=== PATIENT | male | born 1935 | race Hispanic/Latino ===

== ENCOUNTER 2017-12-03 09:40 | Outpatient (CLI) | payer MEDICARE, OTHER ==
--- NOTE | 2017-12-03 11:00 | Ultrasound Report ---
Limited abdominal ultrasound: Prostate cancer and elevated bilirubin. Images of the liver demonstrate a generally normal size and echo pattern. There is no focal finding. The gallbladder is echogenically unremarkable and the CBD diameter is 3 mm. The body and head of the pancreas are visualized and appear somewhat echogenic but the tail is obscured. The right renal length is 11.5 cm. In the superior pole there is an echolucent mass measuring 3.6 cm consistent with a cyst. The kidney is not otherwise remarkable. The transverse diameter of the proximal abdominal aorta is 1.7 cm. Impressions: Probable fatty changes of the pancreas. Superior pole right renal cyst.
== END 2017-12-03 09:41 | disposition home or self-care (01) ==
LOC: SPVWC 09:40
PROVIDERS: ATTEND Internal Medicine Hematology
DX: R97.21 Rising PSA following treatment for malignant neoplasm of prostate (principal); N28.1 Cyst of kidney, acquired
CPT/HCPCS: 76705

== ENCOUNTER 2018-03-18 08:34 | Outpatient (CLI) | payer MEDICARE, OTHER ==
[2018-03-18 09:43] LABS: Blood Urea Nitrogen 16 mg/dL (9-20)
--- NOTE | 2018-03-18 14:25 | Cat Scan Report ---
CT HEAD WITH AND WITHOUT CONTRAST: HISTORY: Left temporal bone mass. Serial contiguous axial images were obtained through the cranium, both before and after the administration of intravenous contrast material. The ventricles are normal in size and appearance. There is no mass effect or midline shift. No areas of abnormally increased or decreased attenuation are seen. No mass lesion is seen. Mild diffuse cortical atrophy and mild chronic white matter changes are identified which appear appropriate for this persons age. The mastoid air cells and visualized portions of the sinuses are normal. IMPRESSION: Senescent changes. No acute process. No left temporal bone mass is detected on CT.
--- NOTE | 2018-03-19 07:34 | Cat Scan Report ---
CT CHEST WITH CONTRAST: HISTORY: PSA, prostate cancer. COMPARISON: PET CT dated 06/15/16. TECHNIQUE: Helical CT in 1.25mm intervals following IV contrast. Sagittal and coronal reformatted images. FINDINGS: Thyroid gland: The thyroid gland appears atrophic which is unchanged. There is a calcified masslike lesion just posterior and inferior to the left thyroid lobe measuring 2.8 x 1.9 cm in axial plane which is also unchanged. It is unclear if this represents an exophytic thyroid lesion, calcified lymph nodes or other lesion. I suspect a benign etiology. Tracheobronchial tree: Normal. Esophagus: Normal. Heart: Normal size heart. Mild aortic valve calcifications are noted. Pericardium: Normal. Mediastinum: No mediastinal mass or inflammation. The aorta is normal caliber and contains mild scattered calcific plaques. Lung Chavez: No evidence for pulmonary nodule, mass or infiltrate. 1.6 cm right middle lobe parenchymal lung cyst is noted. There is evidence for mild air trapping in both lungs which could be related to mild COPD. Pleural Spaces: Normal. Musculoskeletal: The bony structures are intact. Mild multilevel thoracic spondylosis is noted. No suspicious bony lesions are identified. IMPRESSION: No evidence for metastatic disease to the chest. Chronic findings as outlined above which appear unchanged since the PET CT dated 06/15/16.
--- NOTE | 2018-03-19 07:43 | Cat Scan Report ---
CT ABDOMEN PELVIS WITH CONTRAST: HISTORY: Elevated PSA, prostate cancer. COMPARISON: PET CT dated 06/15/16. TECHNIQUE: Helical CT in 1.25mm intervals following IV contrast. Sagittal and coronal reconstructions. FINDINGS: Liver: Normal. Biliary system: Normal. Pancreas: Normal. Spleen: Normal. Kidneys/ureters/bladder: 4.3 cm simple cyst in the superior right kidney is unchanged. 2.4 cm intermediate density cyst adjacent to the cyst in the superior right kidney is also unchanged and is most consistent with a hemorrhagic cyst. The left kidney is unremarkable other than a focal area of cortical scarring in the posterior left kidney which is unchanged. The ureters are normal course and caliber. The bladder is partially empty. A 4 mm bladder stone is noted in the right lateral bladder near the right UVJ. There were numerous bladder stones on the previous PET CT which are no longer present. Moderate enlargement of the prostate gland measuring up to 7.2 cm in diameter is unchanged. Adrenal glands: Normal. Aorta: Mild scattered calcifications. No aneurysm or stenosis. Intestines: Moderate sigmoid diverticulosis is unchanged. There is no evidence for bowel obstruction or inflammatory change. No obvious GI mass. Appendix: Not identified, correlate with surgical history. Ascites: None. Adenopathy: No pathologic adenopathy identified. Musculoskeletal: The bony structures are intact. Mild lumbar spondylosis is noted. No suspicious bony lesion is identified. IMPRESSION: Enlarged prostate measuring 7.2 cm in diameter. No evidence for metastatic disease to the abdomen or pelvis. Right renal cysts as described. Sigmoid diverticulosis. 4 mm bladder stone.
--- NOTE | 2018-03-19 07:47 | Nuclear Medicine Report ---
BONE SCAN: History: Elevated prostate specific antigen. After injection of isotope, gamma camera imaging of the bony system was done. There is physiologic renal and soft tissue uptake. There are 3 patchy areas slightly increased radiotracer uptake in the frontal regions of the calvarium bilaterally. The etiology of this is unclear. No suspicious bony lesions are identified on CT head with and without contrast performed the same day. There is moderate degenerative uptake in the shoulders, sternoclavicular joints, knees and feet. Mild uptake throughout the maxillary bone is consistent with periodontal disease. No focal abnormal uptake is identified to suggest metastatic disease to the bones. IMPRESSION: Negative bone scan. Degenerative changes. Subtle patchy uptake in the frontal regions of the calvarium as outlined above.
== END 2018-03-18 08:35 | disposition home or self-care (01) ==
LOC: NM 08:34
PROVIDERS: ATTEND Internal Medicine Hematology
DX: N40.0 Benign prostatic hyperplasia without lower urinary tract symptoms (principal); K57.30 Diverticulosis of large intestine without perforation or abscess without bleeding; N28.1 Cyst of kidney, acquired; N21.0 Calculus in bladder; J98.4 Other disorders of lung; I70.0 Atherosclerosis of aorta; G31.9 Degenerative disease of nervous system, unspecified; E07.9 Disorder of thyroid, unspecified; M47.895 Other spondylosis, thoracolumbar region; R97.20 Elevated prostate specific antigen [PSA]; R90.82 White matter disease, unspecified
CPT/HCPCS: 36415; 70470; 71260; 74177; 78306; 82565; 84520; A9503; Q9967

== ENCOUNTER 2019-03-25 11:16 | Outpatient (CLI) | payer MEDICARE, OTHER ==
--- NOTE | 2019-03-25 15:32 | Cat Scan Report ---
CT HEAD WITH AND WITHOUT CONTRAST: HISTORY: Elevated prostate specific antigen. Serial contiguous axial images were obtained through the cranium, both before and after the administration of intravenous contrast material. The ventricles are normal in size and appearance. There is no mass effect or midline shift. No areas of abnormally increased or decreased attenuation are seen. No mass lesion is seen. The mastoid air cells and visualized portions of the sinuses are normal. IMPRESSION: Cranial CT scan within normal limits.
--- NOTE | 2019-03-25 16:54 | Cat Scan Report ---
PROCEDURE: CT abdomen and pelvis with contrast. TECHNIQUE: Computerized axial tomography of the abdomen and pelvis was performed after the IV inject ion of iodinated nonionic contrast. CT DOSE LENGTH PRODUCT: Not provided mGycm HISTORY: ELEVATED PROSTATE SPECIFIC ANTIGEN COMPARISONS: CT abdomen and pelvis 03/17/2018. Dictation not available. FINDINGS: The lung bases are grossly clear. There are no pleural effusions. The heart size is normal. The liver , pancreas and spleen appear normal. The gallbladder is present. There is no biliary dilatation. The adrenal glands are not enlarged. There are 3 cysts in the right kidney. One of these cysts has higher attenuation. The abdominal aorta has a normal caliber. There is no retroperitoneal adenopathy. The g astrointestinal tract is unremarkable. The appendix is not visualized. There are approximately 3 smal l calcifications within the bladder. The seminal vesicles appear normal. The prostate is enlarged. Th e regional skeleton appears intact. There is probably a right hydrocele present. IMPRESSION: Right renal cysts, one of which is hyperdense. Enlarged prostate. Probable right scrotal hydrocele. This document is electronically signed by Saul Ding MD., March 25 2019 04:52:12 PM ET
--- NOTE | 2019-03-25 17:36 | Cat Scan Report ---
PROCEDURE: CT CHEST W CON TECHNIQUE: CT chest with intravenous contrast HISTORY: ELEVATED PROSTATE SPECIFIC ANTIGEN COMPARISONS: Comparison is dated March 18, 2018 FINDINGS: Partially calcified focus in the upper mediastinum again noted this is unchanged and appears benign. No evidence for pathologic lymph node enlargement Heart and great vessels are unremarkable. No focal pulmonary infiltrate identified. No pleural fluid collection seen. No lytic or blastic bony lesions are identified. Visualized upper abdomen is unremarkable. IMPRESSION: Negative no acute findings.. This document is electronically signed by Timothy Blake MD., March 25 2019 05:34:56 PM ET
--- NOTE | 2019-03-26 11:46 | Nuclear Medicine Report ---
NUCLEAR MEDICINE WHOLE-BODY BONE SCAN: 03/25/19 CLINICAL: History of prostate CA and elevated PSA (7). COMPARISON: 03/18/18 TECHNIQUE: 25 millicuries technetium 99m MDP was injected intravenously and whole body scans were obtained at 3 hours. FINDINGS: 3 patchy areas of increased uptake in the prior region of the calvarium bilaterally are not significantly changed compared to the last exam. The distribution of radionuclide in the skeleton and soft tissues is otherwise normal. No suspicious uptake. IMPRESSION: Negative bone scan with stable subtle patchy nonspecific uptake in the calvarium.
== END 2019-03-25 11:17 | disposition home or self-care (01) ==
LOC: NM 11:16
PROVIDERS: ATTEND Internal Medicine Hematology
DX: N28.1 Cyst of kidney, acquired (principal); R22.0 Localized swelling, mass and lump, head; J98.59 Other diseases of mediastinum, not elsewhere classified; N40.0 Benign prostatic hyperplasia without lower urinary tract symptoms; R97.20 Elevated prostate specific antigen [PSA]; Z85.46 Personal history of malignant neoplasm of prostate
CPT/HCPCS: 70470; 71260; 74177; 78306; A9503; Q9967